=== PATIENT | female | born 1995 | race Caucasian/White ===

== ENCOUNTER 2017-12-16 16:07 | Emergency (ER) | payer SELFPAY ==
[2017-12-16] MEDS ORDERED: HYDROcodone/Acetaminophen 10/325 mg Tablet ONE (17:13)
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
== END 2017-12-16 17:28 | disposition home or self-care (01) ==
LOC: ERS 16:07
DX: M41.9 Scoliosis, unspecified (principal); J45.909 Unspecified asthma, uncomplicated; Z79.899 Other long term (current) drug therapy
CPT/HCPCS: 72070